=== PATIENT | male | born 1975 | race Two or more races ===

== ENCOUNTER 2020-06-05 06:54 | Inpatient (IN) | payer MEDICAID ==
[~2020-06-05] VITALS: Ht 177.8 cm; Wt 91.2 kg
--- NOTE | 2020-06-05 07:28 | NUR ---
DRY CURER: PT WALKED BACK FROM LOBBY TO ROOM AT THIS TIME.
--- NOTE | 2020-06-05 07:40 | NUR ---
assumed care of pt. pt here c/o L sided Cp s/o last nocs and reports that he has been having some diarrhea and ear syncope x2. pt friend at bedside reports that pt had +LOC x1. pt is currently A&O x4. resting in position of comfort. Mango R[place] at bedside for eval.
[2020-06-05 07:49] LABS: BASOPHILS % (AUTO) 0 % (0-1); EOSINOPHILS % (AUTO) 1 % (1-7); LYMPHOCYTES % (AUTO) 10 % (22-44); MEAN CORPUSCULAR HEMOGLOBIN 30.6 pg (27.5-34.5); MEAN CORPUSCULAR HGB CONC 33.4 g/dL (33.2-36.2); MEAN PLATELET VOLUME 7.6 fL (7.4-10.4); MONOCYTES % (AUTO) 4 % (2-9); NEUTROPHILS % (AUTO) 85 % (42-75); PLATELET COUNT 325 x10^3/uL (130-400); RED BLOOD COUNT 5.97 x10^6/uL (4.38-5.82); RED CELL DISTRIBUTION WIDTH 13.5 % (9.4-14.8)
[2020-06-05 07:50] LABS: MD NO
[2020-06-05 07:53] LABS: ALANINE AMINOTRANSFERASE 63 U/L (12-78); ALBUMIN 4.6 g/dL (3.4-5.0); ANION GAP 6 mmol/L (5-15); CALCIUM 9.2 mg/dL (8.5-10.1); CHLORIDE 108 mmol/L (98-107); CREATININE 1.48 mg/dL (0.7-1.3)
[2020-06-05 07:55] LABS: ALKALINE PHOSPHATASE 96 U/L (45-117); BILIRUBIN,TOTAL 1.3 mg/dL (0.2-1.0); TOTAL PROTEIN 9.1 g/dL (6.4-8.2)
[2020-06-05] MEDS ORDERED: SODIUM CHLORIDE 0.9% 1,000ML IVBOLUS ONE ×2 (08:00→09:00)
[2020-06-05] MEDS ORDERED: KETOROLAC 30 MG/1 ML IVPush ONE (08:00)
[2020-06-05 08:13] LABS: TROPONIN I < 0.015 ng/mL (0.000-0.045)
[2020-06-05] MEDS ORDERED: KETOROLAC 30 MG/1 ML ONE (08:53)
--- NOTE | 2020-06-05 09:03 | NUR ---
Dr Candelario has been to bedside for eval pt to be admittted. pt updated on POC no NG tube to be placed at this time
--- NOTE | 2020-06-05 09:08 | NUR ---
security contacted to collect pt valuables for the hospital safe
--- NOTE | 2020-06-05 10:46 | NUR ---
pt resting in position of comfort, texting on cell phone. updated on POC positioning for comfort
--- NOTE | 2020-06-05 10:47 | NUR ---
security has been to bedside for inventory of pt valuables to safe
[2020-06-05] MEDS ORDERED: KETOROLAC 30 MG/1 ML IV PRN (11:00)
[2020-06-05] MEDS ORDERED: ONDANSETRON 2MG/ML, 2ML IVPush PRN (11:00)
[2020-06-05] MEDS ORDERED: morphine SULFATE 10 MG/ML, 1ML IVPush PRN (11:00)
[2020-06-05] MEDS ORDERED: LABETALOL 5MG/ML, 20ML IVPush PRN (11:00)
[2020-06-05] MEDS ORDERED: ACETAMINOPHEN 325 MG TABLET PO PRN (11:00)
--- NOTE | 2020-06-05 11:55 | NUR ---
pt ambualted to BR for urine sample. well tolerated
[2020-06-05 12:18] LABS: MICROSCOPIC INDICATED
--- NOTE | 2020-06-05 12:20 | NUR ---
pt has been placed on hospital bed. positioning and lights dimmed for comfort. awaiting bed assignment pt updated on POC pt has no c/o at this time
--- NOTE | 2020-06-05 13:00 | NUR ---
no changes. pt resting in position of comfort. report to Cari RAZO
[2020-06-05 14:57] VITALS: BP 131/84
[2020-06-05] MEDS: NS + 20MEQ KCL 1,000 ML IV SCH (17:06)
[2020-06-05 21:00] VITALS: BP 106/66
[2020-06-06] MEDS: NS + 20MEQ KCL 1,000 ML IV SCH (01:24)
[2020-06-06 01:25] VITALS: BP 106/67
[2020-06-06 05:46] LABS: BASOPHILS % (AUTO) 0 % (0-1); EOSINOPHILS % (AUTO) 4 % (1-7); LYMPHOCYTES % (AUTO) 31 % (22-44); MEAN CORPUSCULAR HEMOGLOBIN 30.3 pg (27.5-34.5); MEAN CORPUSCULAR HGB CONC 33.3 g/dL (33.2-36.2); MEAN PLATELET VOLUME 7.4 fL (7.4-10.4); MONOCYTES % (AUTO) 8 % (2-9); NEUTROPHILS % (AUTO) 57 % (42-75); PLATELET COUNT 243 x10^3/uL (130-400); RED BLOOD COUNT 4.87 x10^6/uL (4.38-5.82); RED CELL DISTRIBUTION WIDTH 13.3 % (9.4-14.8)
[2020-06-06 05:50] LABS: ANION GAP 5 mmol/L (5-15); CHLORIDE 116 mmol/L (98-107)
[2020-06-06 05:54] LABS: MD NO
[2020-06-06 05:55] LABS: CHOLESTEROL, TOTAL 98 mg/dL (140-239); CREATININE 1.28 mg/dL (0.7-1.3); HDL CHOL % 34 % (26-37); HDL CHOLESTEROL (DIRECT) 33 mg/dL (40-60); LDL CHOLESTEROL,CALCULATED 44 mg/dL (54-169); LDL/HDL RATIO 1.3 (0.5-3.0); TRIGLYCERIDES 106 mg/dL (50-200); VLDL CHOLESTEROL 21 mg/dL (0-25)
[2020-06-06 07:43] VITALS: BP 112/70
[2020-06-06 13:26] VITALS: BP 122/74
== END 2020-06-06 14:35 | disposition home or self-care (01) | DRG 390 ==
LOC: SUATTDRO 09:15 → ED 09:26 → EDIP 09:44 → 4NW 14:10 → DCLOUNGE 06-06 14:30
PROVIDERS: ADMIT Hospitalist; ATTEND Hospitalist
DX: K56.600 Partial intestinal obstruction, unspecified as to cause (principal); K76.0 Fatty (change of) liver, not elsewhere classified; Z85.47 Personal history of malignant neoplasm of testis; R16.0 Hepatomegaly, not elsewhere classified
CPT/HCPCS: 36415; 71045; 74176; 80048; 80053; 80061; 81001; 83690; 84484; 85025; 93005; 96361; 96374; 99285; G0378; J1885; J3480; J7030